=== PATIENT | male | born 1975 | race Caucasian/White ===

== ENCOUNTER 2017-04-14 17:43 | Inpatient (IN) | payer OTHER ==
[~2017-04-14] VITALS: Ht 185.4 cm; Wt 128.4 kg
[2017-04-14 18:44] LABS: RED BLOOD COUNT 4.99 M/UL (4.20-5.50); WHITE BLOOD COUNT 12.4 K/UL (4.5-11.0)
[2017-04-14 19:03] LABS: BUN/CREATININE RATIO 11 (0-10)
[2017-04-15] MEDS ORDERED: SYMBICORT 160-1 INHA INH (00:41)
[2017-04-15] MEDS ORDERED: TRIAMCINOLONE A15 GM TP (00:43)
[2017-04-15] MEDS ORDERED: SELENIUM SULFI180 ML TP (00:45)
[2017-04-15] MEDS ORDERED: METOPROLOL TART25 MG PO (00:46)
[2017-04-15] MEDS ORDERED: NITROGLYCERIN0.4 MG SL (00:47)
[2017-04-15] MEDS ORDERED: NEURONTIN 400400 MG PO (00:47)
[2017-04-15] MEDS ORDERED: IMDUR ER TAB 3030 MG PO (00:48)
[2017-04-15] MEDS ORDERED: LIORESAL TAB 1010 MG PO (00:48)
[2017-04-15] MEDS ORDERED: SYNTHROID50 MCG PO (00:48)
[2017-04-15] MEDS ORDERED: ECOTRIN81 MG PO (00:49)
[2017-04-15] MEDS ORDERED: SIMVASTATIN20 MG PO (00:49)
[2017-04-15] MEDS ORDERED: ALLOPURINOL100 MG PO (00:50)
[2017-04-15] MEDS ORDERED: PERCOCET 10-321 EACH PO (00:50)
[2017-04-15] MEDS ORDERED: VITAMIN D250000 UNIT PO (00:53)
[2017-04-15 04:12] LABS: HEMOGLOBIN 14.5 gm/dl (14.0-17.5); RED BLOOD COUNT 4.85 M/UL (4.20-5.50); WHITE BLOOD COUNT 11.1 K/UL (4.5-11.0)
[2017-04-15 04:28] LABS: BUN/CREATININE RATIO 13 (0-10)
--- NOTE | 2017-04-16 04:18 | NUR ---
RECEIVED REPORT FROM [place] [phone]
[2017-04-16] MEDS ORDERED: KEPPRA500 MG PO (12:42)
== END 2017-04-16 13:27 | disposition home or self-care (01) | DRG 69 ==
LOC: ER1 17:43 → EDBD 17:43 → ZEROF 20:25 → MED SURG 4 20:25
PROVIDERS: Family Medicine; ADMIT Internal Medicine
PROC: 4A10X4Z Monitoring of Central Nervous Electrical Activity, External Approach (ICD-10-PCS; principal; 2017-04-15)
DX: G45.9 Transient cerebral ischemic attack, unspecified (principal); E03.9 Hypothyroidism, unspecified; E78.5 Hyperlipidemia, unspecified; G47.33 Obstructive sleep apnea (adult) (pediatric); I10 Essential (primary) hypertension; I25.10 Atherosclerotic heart disease of native coronary artery without angina pectoris; G89.29 Other chronic pain; L40.9 Psoriasis, unspecified; J44.9 Chronic obstructive pulmonary disease, unspecified; F17.210 Nicotine dependence, cigarettes, uncomplicated; D72.829 Elevated white blood cell count, unspecified; Z98.61 Coronary angioplasty status; E78.1 Pure hyperglyceridemia; Z87.39 Personal history of other diseases of the musculoskeletal system and connective tissue; Z79.82 Long term (current) use of aspirin; Z79.891 Long term (current) use of opiate analgesic; Z79.899 Other long term (current) drug therapy
CPT/HCPCS: 36415; 70450; 70553; 71010; 72125; 72128; 72131; 80053; 80061; 80307; 81001; 82550; 82553; 82607; 83735; 83874; 84443; 84484; 85025; 87040; 87086; 93005; 94660; 95816; 96374; 99285; A9577; G0378; J2060; J7030